=== PATIENT | female | born 1950 ===

== ENCOUNTER 2022-12-04 09:13 | Outpatient (REF) | payer MEDICARE, SELFPAY ==
[2022-12-04 14:35] LABS: Influenza A PCR NEGATIVE (Negative); Influenza B PCR NEGATIVE (Negative); Resp Syncy Virus RNA Qual PCR NEGATIVE (Negative); SARS COV2 PCR INHOUSE NEGATIVE (Negative)
== END 2022-12-04 09:14 | disposition home or self-care (01) ==
LOC: HO.LAB 09:13
PROVIDERS: Visit Provider Nurse Practitioner Family
DX: Z20.822 Contact with and (suspected) exposure to COVID-19 (principal)
CPT/HCPCS: 0241U

== ENCOUNTER 2024-05-31 11:56 | Outpatient (AMB) | payer MEDICARE, SELFPAY ==
--- NOTE | 2024-05-31 12:32 | MHC.OFFWIV ---
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 Her symptoms have been ongoing for the past 2 days. She denies hematuria or discharge with urination. No constitutional symptoms. PFSH Social History Patient Tobacco Use Status: Never used Tobacco Patient : No Review of Systems Const Details: Const Denies chills, Denies fatigue, Denies fever(s), Denies headache(s) and Denies weakness ENT Denies change in vision, Denies dizziness, Denies headache(s), Denies hearing loss, Denies nasal congestion, Denies sinus pain, Denies sinus pressure and Denies sore throat Resp Denies cough, Denies dyspnea, Denies wheezing and Denies other (shortness of breath) Cardio Denies chest pain, Denies lightheadedness, Denies dyspnea and Denies other (palpitations) Neuro Denies dizziness, Denies headache(s), Denies numbness, Denies tingling and Denies weakness Reports as per HPI Endo Denies fatigue Aller/Immun Denies wheezing Physical Exam Vital Signs: Last Vital Signs Temp 97.9 F 05/31/24 12:42 Pulse 67 05/31/24 12:42 Resp 16 05/31/24 12:42 BP 138/78 05/31/24 12:42 Pulse Ox 96 05/31/24 12:42 Oxygen Delivery Method Room Air 05/31/24 12:42 BMI result Body Mass Index 31.5 Const Other: Const General: well developed; No acute distress Nutritional Appearance: well nourished Orientation/consciousness: patient oriented x3 HEENT Head: Yes normocephalic and Yes atraumatic Eyes General: appearance normal, both eyes and all related structures Pupils: Equal, round and reactive pupils present EOM: EOMs intact bilaterally Resp Effort & Inspection: normal respiratory effort Auscultation: clear to auscultation bilaterally Cardio Rate: regular rate Rhythm: regular rhythm Heart sounds: S1 normal heart sound present, S2 normal heart sound present, no gallops, no murmurs and no rubs Bruits: no abdominal aortic bruits and no carotid bruits Neuro General: patient oriented x3 and gait normal, no focal neuro deficit Cranial nerves: Yes Equal, round and reactive pupils present Right CVA tenderness Psych Affect: normal affect Results AMB Urinalysis Dipstick UR Leukocytes Negative Last Edit by Tessie Issa on 05/31/24 13:23 UR Nitrite Negative Last Edit by Tessie Issa on 05/31/24 13:23 UR Urobilinogen Normal Last Edit by Tessie Issa on 05/31/24 13:23 UR Protein Negative Last Edit by Tessie Issa on 05/31/24 13:23 UR Ph 6.0 Last Edit by Tessie Issa on 05/31/24 13:23 UR Blood Negative Last Edit by Tessie Issa on 05/31/24 13:23 UR Specific [place] 1.010 Last Edit by Tessie Issa on 05/31/24 13:23 UR Ketone Negative Last Edit by Tessie Issa on 05/31/24 13:23 UR Bilirubin Negative Last Edit by Tessie Issa on 05/31/24 13:23 UR Glucose Negative Last Edit by Tessie Issa on 05/31/24 13:23 Assessment & Plan Assessment & Plan (1) Lower urinary tract symptoms (LUTS): Code(s): R39.9 - Unspecified symptoms and signs involving the genitourinary system Plan: Urinary frequency and dysuria x2 days Urine dip is negative for leukocyte, nitrite, and red blood cells Right CVA tenderness Macrobid ordered. Advised to take as prescribed Adequate hydration encouraged Instructed on genital hygiene to prevent bacterial infection Will send urine to the lab for urinalysis and culture Follow-up with worsening or new symptoms Verbalized understanding and agreed with the treatment plan Orders: Orders AMB Urinalysis Dipstick Today Z13.9 - Encounter for screening, unspecified UA CC w/rflx Micro + Cult Today R39.9 - Unspecified symptoms and signs involving the genitourinary system Medications: New nitrofurantoin monohyd/m-cryst 100 mg (Macrobid) must administer with a meal/food 100 mg PO Q12H 5 days 10 caps 0RF Coding Level of Care Code New Pt Level 3 (01650) Diagnoses Lower urinary tract symptoms (LUTS) R39.9
[2024-05-31 12:42] VITALS: BP 138/78; PULSE 67; RESP 16; TEMP 36.6; O2SAT 96; BMI 31.5
== END 2024-05-31 13:57 | disposition home or self-care (01) ==
PROVIDERS: Visit Provider Nurse Practitioner Family
DX: R39.9 Unspecified symptoms and signs involving the genitourinary system (principal); Z13.9 Encounter for screening, unspecified

== ENCOUNTER 2024-05-31 11:56 | Outpatient (REF) | payer MEDICARE, SELFPAY ==
[2024-05-31 15:46] LABS: Appearance Urine Cloudy; Color Urine Yellow; Glucose Urine UA Negative (Negative); Leukocyte Esterase Urine Small (1+) (Negative); Nitrite Urine Negative (Negative); UMIC TRIGGER UACC YES; Urine Blood Negative (Negative); Urine Ketones Negative (Negative); Urine Protein Negative (Neg-Trace)
[2024-05-31 15:50] LABS: Bacteria Urine 4+ (None Seen); Hyaline Casts Urine 0-2 /LPF (0-2); RBC Urine 0-2 /HPF (0-2); UACC Culture Trigger YES
== END 2024-05-31 11:57 | disposition home or self-care (01) ==
LOC: HO.LNP 11:56
PROVIDERS: PCP Nurse Practitioner Family; Visit Provider Nurse Practitioner Family
DX: R39.9 Unspecified symptoms and signs involving the genitourinary system (principal)
CPT/HCPCS: 81001; 81002; 87086; 87088; 87186; 99202